=== PATIENT | male | born 1975 | race Caucasian/White ===

== ENCOUNTER 2023-10-05 08:58 | Outpatient (AMB) | payer OTHER, SELFPAY ==
--- NOTE | 2023-10-05 08:59 | MHC.OFFVIS ---
Vital Signs 10/05/23 09:04 Height 5 ft 7 in Weight 223 lb BMI 34.9 BP 142/86 H Blood Pressure Location Rt brachial Position Sitting Pulse 72 Intake Visit Reasons: Right inguinal hernia Intake Note: This patient presents for an assessment for right inguinal hernia. Patient c/o; Onset 3-5 years, reports right groin, reports pain and burning sensation. Software Application Tester Required: No Accompanied by: Self / Same As Patient Allergies No Known Allergies [No Known Allergies*] Allergy (Unverified 10/05/23 09:04) amoxicillin Allergy (Unknown, Uncoded 10/05/23 09:04) rash Medication List - Last Reconciled 10/05/23 by Mario Jensen MD No Known Home Meds HPI HPI Right inguinal hernia: Details: 48-year-old male referred for an inguinal hernia on the right side. He has been noticing this reducible mass for several years. This has been causing him some tenderness once a while. However, for the past few months he says that his symptoms have been worsening. He says that the pain has been more frequent. Furthermore the hernia comes out more often. He says that once in a while he has to push this back in. 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 He admits to being a smoker. He smokes a pack a day. [facility] Medical History Right inguinal hernia Smoker Surgical History (Updated 10/05/23 @ 09:05 by HUMBERTO Mercedes) No pertinent past surgical history Family History (Updated 10/05/23 @ 09:07 by HUMBERTO Mercedes) Maternal Aunt Breast cancer Social History Alcohol intake: never Patient Tobacco Use Status: Current everyday Tobacco user Review of Systems Const Denies chills and Denies fever(s) Card Denies chest pain, Denies dyspnea and Denies dyspnea on exertion Resp Denies cough, Denies dyspnea and Denies dyspnea on exertion GI Denies hematochezia and Denies change in bowel habits Denies hematuria and Denies difficulty urinating Musc Denies back pain and Denies limited range of motion Neuro Denies focal weakness and Denies convulsions Psych Denies depression and Denies mood swings Physical Exam Vital Signs: Last Vital Signs Pulse 72 10/05/23 09:04 BP 142/86 H 10/05/23 09:04 BMI result Body Mass Index 34.9 Const General: comfortable and no acute distress Orientation/consciousness: patient oriented x3 Neck Neck: Yes no lymphadenopathy Resp Auscultation: clear to auscultation bilaterally Cardio Rhythm: regular rhythm GI Palpation (GI): Soft to palpation, nontender and no guarding Neuro General: patient oriented x3 Assessment & Plan Assessment & Plan (1) Right inguinal hernia: Code(s): K40.90 - Unilateral inguinal hernia, without obstruction or gangrene, not specified as recurrent Category: Medical Plan He has a reducible right inguinal hernia. This has been bothering him more over the years. I explained him the technique of repair of the right inguinal hernia with mesh. I reviewed the risks including but not limited to bleeding, infections, injury to bowel, vas deferens or the testicle, recurrence, postop pain, as well as the benefits and alternatives. I explained to him what to expect postoperatively. He understands and says he wants to proceed because of his symptoms. Coding Level of Care Code New Pt Level 3 (39420) Diagnoses Right inguinal hernia K40.90
[2023-10-05 09:04] VITALS: BP 142/86; PULSE 72; BMI 34.9
== END 2023-10-05 09:19 | disposition home or self-care (01) ==
PROVIDERS: PCP Hospitalist; Visit Provider Surgery
DX: K40.90 Unilateral inguinal hernia, without obstruction or gangrene, not specified as recurrent (principal)
CPT/HCPCS: 99203

== ENCOUNTER → 2023-10-05 08:58 | Outpatient (BNVA) | payer OTHER, SELFPAY | PROVIDERS: PCP Hospitalist; Visit Provider Surgery ==

== ENCOUNTER 2023-10-24 09:51 | Day surgery (SDC) | payer OTHER, SELFPAY ==
[2023-10-20 14:17] VITALS: BMI 34.9
--- NOTE | 2023-10-23 11:04 | HO.ANESPROP2 ---
HPI - Anesthesia Eval Consult details Narrative: 48yo M for Right Hernia Inguinal Reducible with mesh PMFSH Active Problems Active Problems: All Active Problems Right inguinal hernia (Acute) Smoker (Acute) Past Medical History Medical History H/O ETOH abuse Right inguinal hernia Smoker Family History Family History Maternal Aunt Breast cancer Surgical History Surgical History No pertinent past surgical history Social History Social History Alcohol intake: never Patient Tobacco Use Status: Current everyday Tobacco user Tobacco use type: Cigarette Cigarettes Per Day: 10 Years Smoked: 10 Smoked in Last 30 Days: Yes Use of substances other than those prescribed or required for medical reasons: No Are you DNR?: No Advance Directives: No Advance Directives Information Provided: Yes Meds Allergies Allergy/AdvReac Type Severity Reaction Status Date / Time amoxicillin Allergy Intermediate Rash Verified 10/24/23 12:16 diphenhydramine Allergy Intermediate Tingling Verified 10/24/23 15:03 [From Benadryl] Exam Height,Weight and Vital Signs: Height 5 ft 7 in Weight 101.151 kg Assessment and Plan Assessment Anesthesia Assessment: Chart Reviewed
[2023-10-24] VITALS (15 sets, daily range): BP systolic 106–126; BP diastolic 65–81; PULSE 55–68; RESP 16–20; TEMP 36.1–36.9; O2SAT 95–100; BMI 34.6
[2023-10-24] MEDS: Lactated Ringers 1,000 ML 100 ML IVCONT (13:40)
--- NOTE | 2023-10-24 13:59 | HO.ANESPROP2 ---
[facility] Active Problems Active Problems: All Active Problems Right inguinal hernia (Acute) Smoker (Acute) Past Medical History Medical History H/O ETOH abuse Right inguinal hernia Smoker Functional capacity: independent ambulation Family History Family History Maternal Aunt Breast cancer Family history of problems with anesthesia: No Surgical History Surgical History No pertinent past surgical history History of Problems with Anesthesia: No Social History Social History Alcohol intake: never Patient Tobacco Use Status: Current everyday Tobacco user Tobacco use type: Cigarette Cigarettes Per Day: 10 Years Smoked: 10 Smoked in Last 30 Days: Yes Use of substances other than those prescribed or required for medical reasons: No Are you DNR?: No Advance Directives: No Advance Directives Information Provided: Yes Meds Allergies Allergy/AdvReac Type Severity Reaction Status Date / Time amoxicillin Allergy Intermediate Rash Verified 10/24/23 12:16 Active Medications: Current Medications Albuterol Sulfate (Albuterol Sulfate (0.083%) 2.5 Mg/3 Ml Vial.Neb) 2.5 mg INHALE ONCE PRN PRN Reason: Shortness of Breath/Wheezing Lactated Ringer's (Lr) 1,000 mls @ 100 mls/hr IVCONT .Q10H PRASHANTH Last Admin: 10/24/23 13:40 Dose: 100 mls/hr Home Medications ?Medication ?Instructions ?Recorded ?Confirmed ?Last Taken ?Type No Known Home Meds 10/05/23 10/24/23 Unknown History Exam Height,Weight and Vital Signs: Height 5 ft 7 in Weight 100.244 kg Last Vital Signs Temp 97.0 F 10/24/23 12:19 Pulse 64 10/24/23 12:19 Resp 16 10/24/23 12:19 BP 126/78 10/24/23 12:19 Pulse Ox 96 10/24/23 12:19 O2 Del Method Room Air 10/24/23 12:19 Airway Mallampati Class: III TM Dist: >3cm Neck ROM: Full Heart: RRR Lungs: CTA Assessment and Plan Assessment Anesthesia Assessment: Anesthesia Plan Discussed and Smoking Cess. Discussed Final Anesthetic Review Family History of Problems with Anesthesia: No History of Problems with Anesthesia: No ASA Class: III Final Preanesthetic Review: Meds/Allgs Chart Reviewed, Consent Obtained/Reviewed and Anes Risks/Benef Reviewed Patient Risk: Intermediate Procedure Risk: Low Anesthetic Plan Anesthetic Plan: GA Disposition: Standard PACU
--- NOTE | 2023-10-24 14:09 | MHC.SHP ---
Pre-Procedural Eval Section A - 24 Hr Update-Section A only Date of Service: 10/24/23 The patient is an INPATIENT: No Changes since office visit: No Cold of Flu in the past 2 weeks, No New Medical Problems, No Changes in Medication and No Patient answered all questions The patient has been examined within 24 hours of the surgical procedure. The History & Physical has been completed within 30 days and I have reviewed it.: Yes Section B - Complete if H&P > 30 days Chief Complaint: Unilateral inguinal hernia, without obstruction Allergies: Allergies Allergy/AdvReac Type Severity Reaction Status Date / Time amoxicillin Allergy Intermediate Rash Verified 10/24/23 12:16 Plan I have reviewed the history and physical and performed a pertinent physical examination on my patient. No changes have occurred unless specified. Time Spent With Patient Time: Total time managing care of this patient today ____ minutes.
--- NOTE | 2023-10-24 16:22 | W.PM.OPN ---
Operative Note Operative Note Date of Service: 10/24/23 Narrative: Preop diagnosis: Right inguinal hernia, partially reducible Postop diagnosis: Right inguinal hernia, with chronically incarcerated omental fat, indirect Procedure: Repair of a right inguinal hernia with mesh Surgeon: Mario Jensen MD Customer Engagement Representative: MAIK Funez student The patient is a 48-year-old male with a partially reducible right inguinal hernia with symptoms. He wanted proceed with repair. He understood the technique of repair with mesh. He was aware of the risks, benefits, and alternatives He was brought to the operating room. He was placed supine under general anesthesia via laryngeal mask airway. The right groin area was prepped and draped in the usual sterile fashion. A surgical time-out was done. The patient received cefazolin 2 g IV preoperatively I infiltrated the planned line of incision with lidocaine 1%. I made a short incision using a blade 15. Along an imaginary line from the anterior superior iliac spine to the pubic ramus. I deepened the incision with electrocautery through the full-thickness of the skin and thick subcutaneous fat until I was able to visualize the external oblique aponeurosis. I bluntly dissected the aponeurosis to expose the external ring. I made an incision on the aponeurosis with a blade 15 and extended this inferomedially to connect with the external ring. The inguinal canal was therefore entered. I applied hemostats on the edges of the divided aponeurosis of the external oblique. I bluntly dissected the underside of the aponeurosis to create a pocket for the mesh I then visualize the spermatic cord and its contents and there was a lot of omental fat stuck onto the cord. I bluntly dissected the coordinates contents with my finger until was able to pass a [place] drain around this. This [place] drain was used for retraction. I identified the vas deferens and the accompanying vessels. I protected these during the dissection and carefully the large hernia off of the cord contents. Part of the hernia was also stuck to the testicle so I had to divide this adhesions until was able to separate the entire contents off of the testicle as well. I was able to push the testicle back into the scrotum. I reduced the hernia contents. This was a large indirect hernia through the internal ring. I reinforced the internal ring with a plug. The Prolene plug was secured with Prolene 2 sutures to shelving edge of the inguinal laterally and the internal oblique superiorly and medially. I then reinforced the entire floor of the canal with a keyhole mesh. The tails of the mesh were passed around the cord at the level of the internal ring and secured together with Prolene 2 sutures. I secured the mesh to the shelving edge of the inguinal meant laterally, the pubic ramus inferomedially as well as the internal oblique superiorly and medially. I removed the Kam drain I irrigated. I observed for hemostasis. Once hemostasis was confirmed, I proceeded to then close the internal oblique aponeurosis with a running Polysorb 2-0 stitch to re-create the external ring The subcutaneous layer was reapposed with Polysorb 3-0 interrupted sutures. Skin closure was achieved on all incisions using Polysorb 4-0 subcuticular running stitch The area was infiltrated with Marcaine 0.5% for postop analgesia. Dressings were applied. The procedure was completed The patient tolerated the procedure well. There were no immediate complications. Initial and final counts of sponges and instruments were correct. Estimated blood loss was about 20 cc The patient was extubated without difficulty and transferred to the recovery room with stable vital signs.
[2023-10-24] MEDS: fentaNYL citrate/PF 100 MCG/2 ML VIAL 25 MCG IVPUSH ×4 (16:34→16:54)
[2023-10-24] MEDS: oxyCODONE HCl Immed Release 5 MG TABLET 10 MG PO (17:07)
== END 2023-10-24 18:00 | disposition home or self-care (01) ==
PROVIDERS: PCP Hospitalist; Visit Provider Surgery
PROC: (CPT 49507; principal; 2023-10-24 13:40)
DX: K40.90 Unilateral inguinal hernia, without obstruction or gangrene, not specified as recurrent (principal); F17.210 Nicotine dependence, cigarettes, uncomplicated
CPT/HCPCS: 49507; C1781; J0131; J0665; J0690; J1100; J2250; J2405; J2704; J3010

== ENCOUNTER → 2023-10-24 09:51 | Outpatient (BNV) | payer OTHER, SELFPAY | PROVIDERS: PCP Hospitalist; Visit Provider Surgery | DX: K40.90 Unilateral inguinal hernia, without obstruction or gangrene, not specified as recurrent (principal) | CPT/HCPCS: 49507 ==

== ENCOUNTER 2023-11-06 14:17 | Outpatient (AMB) | payer OTHER, SELFPAY ==
--- NOTE | 2023-11-06 14:19 | A.OFFVIS_ITS ---
Intake Visit Reasons: s/p right inguinal hernia repair with mesh Intake Note: This patient presents for a post-op assessment status post right inguinal hernia repair with mesh. Pt c/o; reports no complaints pertaining to surgery at this time. Bonsai Tender Required: No Accompanied by: Self / Same As Patient Allergies amoxicillin Allergy (Intermediate, Verified 11/06/23 14:26) Rash diphenhydramine [From Benadryl] Allergy (Intermediate, Verified 11/06/23 14:26) Tingling HPI HPI s/p right inguinal hernia repair with mesh: Details: He underwent repair of a right inguinal hernia with mesh last 10/24/2023. He tolerated the procedure well. He currently denies significant complaints and says he feels well overall. [facility] Medical History H/O ETOH abuse Right inguinal hernia Smoker Surgical History History of right inguinal hernia repair Family History Maternal Aunt Breast cancer Social History Alcohol intake: never Patient Tobacco Use Status: Current everyday Tobacco user Tobacco use type: Cigarette Cigarettes Per Day: 10 Years Smoked: 10 Review of Systems Const Denies chills and Denies fever(s) Card Denies chest pain, Denies dyspnea and Denies dyspnea on exertion Resp Denies cough, Denies dyspnea and Denies dyspnea on exertion GI Denies hematochezia and Denies change in bowel habits Denies hematuria and Denies difficulty urinating Musc Denies back pain and Denies limited range of motion Neuro Denies focal weakness and Denies convulsions Psych Denies depression and Denies mood swings Physical Exam Const General: comfortable and no acute distress Resp Effort & Inspection: normal respiratory effort GI Other: Right inguinal hernia repair site is well healed, not infected, repair is intact Assessment & Plan Assessment & Plan (1) Right inguinal hernia: Code(s): K40.90 - Unilateral inguinal hernia, without obstruction or gangrene, not specified as recurrent Category: Medical Plan: Status post repair with mesh. He is doing very well. The repair site is intact and well healed I advised him to avoid lifting anything more than 20 lb for at least 2 more weeks. Can follow up on a p.r.n. basis. Coding Level of Care Code Global (46917) Diagnoses Right inguinal hernia K40.90
== END 2023-11-06 14:33 | disposition home or self-care (01) ==
LOC: HO.HGS 14:17
PROVIDERS: PCP Hospitalist; Visit Provider Surgery
DX: K40.90 Unilateral inguinal hernia, without obstruction or gangrene, not specified as recurrent (principal)
CPT/HCPCS: 99024

== ENCOUNTER → 2023-11-06 14:17 | Outpatient (BNVA) | payer OTHER, SELFPAY | PROVIDERS: PCP Hospitalist; Visit Provider Surgery ==

== ENCOUNTER 2024-05-18 10:40 | Emergency (ER) | payer OTHER, SELFPAY ==
--- NOTE | 2024-05-18 10:57 | ED_ITS ---
HPI - Alcohol General Chief Complaint: ETOH/Substance Use Stated Complaint: ETOH USE W/AMS,,HIGH BP 180/100 PER EMS Time Seen by Provider: 05/18/24 10:42 Source: patient and old records reviewed Mode of arrival: ambulatory Limitations: other (intoxication) History of Present Illness ED Provider: SHREE HPI narrative: 49 yo male with PMH of ETOH abuse he will not quantify how much other than a lot 911 was called today as patient was found by son lying down crying and then he started to report SI. He denies any ingestion or overdose. He has no medical complaints. He cries and states he has ETOH problem and is suicidal. He does not state why this is happening MD complaint: alcohol intoxication Last drink: Just prior to admission Chronic alcohol use: Yes Previous visits for alcohol intoxication: No Recent trauma: No Associated symptoms: suicidality Treatments prior to arrival: none Related Data Previous Rx's ?Medication ?Instructions ?Recorded ibuprofen 600 mg tablet 600 mg PO Q6H PRN pain #30 tabs 10/24/23 oxycodone-acetaminophen 5 mg-325 1 tab PO Q4-6H PRN pain #25 tabs 10/24/23 mg tablet (Percocet) Allergies Allergy/AdvReac Type Severity Reaction Status Date / Time amoxicillin Allergy Intermediate Rash Verified 05/18/24 11:07 diphenhydramine Allergy Intermediate Tingling Verified 05/18/24 11:07 [From Benadryl] Review of Systems 2 Review of Systems: ROS unable to be obtained due to intoxication PMFSH Past Medical History Attestation statement: The following information was validated with the patient. Source: old records reviewed Medical History H/O ETOH abuse Right inguinal hernia Smoker Surgical History History of right inguinal hernia repair Family History Family History Maternal Aunt Breast cancer Social History Social History (Updated 05/18/24 @ 10:59 by Lisa Amos DO) Alcohol intake: current Alcohol intake frequency: 3 or more drinks per day Alcohol type: beer Patient Tobacco Use Status: Current everyday Tobacco user Tobacco use type: Cigarette Cigarettes Per Day: 10 Years Smoked: 10 Smoked in Last 30 Days: Yes Use of substances other than those prescribed or required for medical reasons: No Advance Directives: No Do you have a plan to hurt others: No Plan Physical Exam ED Vital Signs: Vital Signs - 24 hr 05/18/24 10:59 05/18/24 11:09 05/18/24 13:29 Temperature 98.1 F Pulse Rate 77 77 79 Respiratory Rate 18 18 20 Blood Pressure 139/81 139/81 127/84 Pulse Oximetry 99 99 98 Oxygen Delivery Method Room Air Room Air Room Air BMI result Body Mass Index 33.4 Appearance: Alert. Oriented X3. ETOH odor, slurred speech, mild acute distress. Eyes: Pupils equal, round and reactive to light. injected sclera ENT: Pharynx normal. atraumatic Neck: Normal inspection. Neck supple. CVS: Normal heart rate and rhythm. Pulses normal. Respiratory: No respiratory distress. Breath sounds normal. Abdomen: Soft and non-tender. incision well healed Skin: Skin warm and dry. Normal skin color. Normal skin turgor. Extremities: No lower extremity edema. Neuro: Oriented X 3. No motor deficit. No sensory deficit. Course Course Course Narrative: I did ask to speak to a son about his father but he chose not to speak with me in regards to his care Medical Decision Making Medical Decision Making [facility] Narrative: 49 yo male with ETOH abuse here with c/o SI - he denies ingestions or overdoses will obtain labs and CARE team consult, place on CIWA and PRN ativan. No signs of head trauma Differential Diagnosis Differential Diagnoses: The differential diagnosis associated with the presentation includes ETOH abuse, SI Admission/Observation Consideration of admission/observation: Escalation of care including admission/observation considered physician observation started at 1128am pending CARE team CARE team and addiction involved aware of SI reports states he is denying this now at this time stable for DC 148pm sons are bringing him to [facility] [employer] [facility] detox Consult Healthcare Provider Management of the patient was discussed with: Behavioral Health Provider Lab Data [facility] Lab Attestation statement: I reviewed the patient's lab results. 05/18/24 10:55 05/18/24 10:55 Labs: Lab Results 05/18/24 Range/Units 10:55 WBC 12.1 H (4.8-10.8) X10*3/uL RBC 4.33 L (4.60-5.80) X10*6/uL Hgb 14.5 (14.0-18.0) g/dl Hct 40.5 L (42.0-52.0) % MCV 93.5 (80.0-98.0) fL MCH 33.5 H (27.0-33.0) pg MCHC 35.8 (31.0-36.0) g/dl RDW 13.9 (11.0-16.0) % Plt Count 280 (160-400) X10*3/uL MPV 7.7 L (9.4-12.4) fL Immature Gran % (Auto) 0.7 H (0.0-0.4) % Neut % (Auto) 74.8 H (45-73) % Lymph % (Auto) 17.5 L (20-40) % Pickett % (Auto) 5.6 (2-11) % Eos % (Auto) 0.7 (0-4) % Baso % (Auto) 0.7 (0-2) % Lymph # (Auto) 2.1 (1.2-4.9) X10*3/uL Pickett # (Auto) 0.7 (0.1-1.2) X10*3/uL Eos # (Auto) 0.1 (0.0-0.4) X10*3/uL Baso # (Auto) 0.1 (0.0-0.2) X10*3/uL Abs Immat Gran (auto) 0.09 H (0.00-0.03) X10*3/uL Absolute Neuts (auto) 9.0 H (2.0-8.3) x10*3/uL Absolute Nucleated RBC 0.000 (0.0-0.012) X10*3/uL Nucleated RBC % (auto) 0.0 (0.0-0.2) /100WBC Sodium 139 (135-145) mmol/L Potassium 3.6 (3.3-5.1) mmol/L Chloride 103 (96-108) mmol/L Carbon Dioxide 24 (22-29) mmol/L Anion Gap 16 (12-20) BUN 8 L (9-16) mg/dL Creatinine 0.98 (0.5-1.4) mg/dL Estim Creat Clear Calc 102.0 Estimated GFR > 60 Random Glucose 121 H (60-115) mg/dL Calcium 7.9 L (8.4-10.2) mg/dL Magnesium 2.2 (1.6-2.6) mg/dL Total Bilirubin 0.4 (0.0-1.0) mg/dL Direct Bilirubin 0.1 (0.0-0.5) mg/dL AST 31 (5-37) U/L ALT 36 (0-40) U/L Alkaline Phosphatase 81 (39-117) U/L Total Protein 6.8 (6.5-8.0) g/dL Albumin 4.0 (3.5-5.0) g/dL Urine Opiates Screen Not Detected (Not Detect) Ur Buprenorphine Scrn Not Detected (Not Detect) ng/mL Ur Oxycodone Screen Not Detected (Not Detect) ng/mL Urine Methadone Screen Not Detected (Not Detect) ng/mL Urine Fentanyl Screen Not Detected (Not Detect) Ur Barbiturates Screen Not Detected (Not Detect) Ur Phencyclidine Scrn Not Detected (Not Detect) Ur Amphetamines Screen Not Detected (Not Detect) U Benzodiazepines Scrn Not Detected (Not Detect) Urine Cocaine Screen Not Detected (Not Detect) U Marijuana (THC) Screen Not Detected (Not Detect) Ethyl Alcohol 307 H* mg/dL Independent Historian Clinical information obtained from an independent historian. History obtained from or confirmed by: EMS External Record Review External record reviewed: Outpatient record Medications Administered Generic Name Dose Route Start Last Admin Trade Name Freq PRN Reason Stop Dose Admin Lorazepam 2 mg 05/18/24 10:48 05/18/24 11:17 Lorazepam 1 Mg Tablet PO 2 mg Q3H PRN Administration Alcohol Withdrawal Discontinued Medications Generic Name Dose Route Start Last Admin Trade Name Freq PRN Reason Stop Dose Admin Ondansetron HCl 4 mg 05/18/24 10:48 05/18/24 11:17 Ondansetron Odt 4 Mg Tab.Rapdis TRANSLINGU 05/18/24 10:49 4 mg ONCE ONE Administration Discharge Plan Discharge Clinical Impression: Alcohol intoxication Qualifiers: Complication of substance-induced condition: with unspecified complication Q ualified Code(s): F10.929 - Alcohol use, unspecified with intoxication, unspecified Patient Disposition: Home, Self-Care Instructions: Abuse of Alcohol (ED) Additional Instructions: labs reassuring ETOH level 307 stable for inpatient rehab return for any worsening symptoms or concerns. Prescriptions: No Action oxycodone-acetaminophen [Percocet] 5-325 mg tablet 1 tab PO Q4-6H PRN (Reason: pain) Qty: 25 0RF Rx Instructions: Partial Fill upon patient request. ibuprofen 600 mg tablet 600 mg PO Q6H PRN (Reason: pain) Qty: 30 0RF Print Language: Peruvian
[2024-05-18 10:59] VITALS: BP 139/81; BP 180/100; PULSE 77; PULSE 92; RESP 18; O2SAT 99; BMI 33.4
[2024-05-18 11:02] LABS: Basophils Absolute Auto 0.1 X10*3/uL (0.0-0.2); Basophils Percent Auto 0.7 % (0-2); Eosinophils Absolute Auto 0.1 X10*3/uL (0.0-0.4); Eosinophils Percent Auto 0.7 % (0-4); Hematocrit 40.5 % (42.0-52.0); Hemoglobin 14.5 g/dl (14.0-18.0); Imm Gran Abs Auto 0.09 X10*3/uL (0.00-0.03); Imm Gran Pct Auto 0.7 % (0.0-0.4); Lymphocytes Absolute Auto 2.1 X10*3/uL (1.2-4.9); Lymphocytes Percent Auto 17.5 % (20-40); MANUAL DIFF FLAG NO; Mean Corpuscular HGB Conc 35.8 g/dl (31.0-36.0); Mean Corpuscular Hemoglobin 33.5 pg (27.0-33.0); Mean Corpuscular Volume 93.5 fL (80.0-98.0); Mean Platelet Volume 7.7 fL (9.4-12.4); Monocytes Absolute Auto 0.7 X10*3/uL (0.1-1.2); Monocytes Percent Auto 5.6 % (2-11); Neutrophils Percent Auto 74.8 % (45-73); Platelet Count 280 X10*3/uL (160-400); Red Blood Count 4.33 X10*6/uL (4.60-5.80); Red Cell Distribution Width 13.9 % (11.0-16.0); White Blood Count 12.1 X10*3/uL (4.8-10.8)
[2024-05-18 11:09] VITALS: BP 139/81; PULSE 77; RESP 18; O2SAT 99
[2024-05-18] MEDS: LORazepam 1 MG TABLET 2 MG PO (11:17)
[2024-05-18] MEDS: Ondansetron ODT 4 MG TAB.RAPDIS TRANSLINGU (11:17)
[2024-05-18 11:19] LABS: Amphetamine Screen Urine Not Detected (Not Detect); Barbiturates, Urine Not Detected (Not Detect); Benzodiazepines Screen Urine Not Detected (Not Detect); Buprenorphine Scr Not Detected (Not Detect); Cannabinoid Screen Urine Not Detected (Not Detect); Cocaine Screen Urine Not Detected (Not Detect); Fentanyl, urine Not Detected (Not Detect); Methadone Screen, Urine Not Detected (Not Detect); Opiate Screen Urine Not Detected (Not Detect); Oxycodone Screen Urine Not Detected (Not Detect); Phencyclidine Screen Urine Not Detected (Not Detect)
--- NOTE | 2024-05-18 11:22 | PC.NURSE ---
Pt comes from home via EMS. Per EMS, Pt was found at home to have consumed a 6 pack of beer. EMS staff reports Pt endorses SI while in transport. Pt is agitated and restless; additionally Pt reports feeling suicidal and frequently apologizes. VSS CIWA = 12. Pt medicated per AUG. Pt now demanding to leave hospital and wishes to speak to his son.
[2024-05-18 11:23] LABS: Alanine Aminotransferase 36 U/L (0-40); Alkaline Phosphatase 81 U/L (39-117); Anion Gap 16 (12-20); Aspartate Amino Transferase 31 U/L (5-37); Bilirubin Direct 0.1 mg/dL (0.0-0.5); Bilirubin Total 0.4 mg/dL (0.0-1.0); Blood Urea Nitrogen 8 mg/dL (9-16); Calcium 7.9 mg/dL (8.4-10.2); Carbon Dioxide 24 mmol/L (22-29); Chloride 103 mmol/L (96-108); Estimated Glomerular Filt Rate > 60; Ethanol 307 mg/dL; Glucose Random 121 mg/dL (60-115); Magnesium 2.2 mg/dL (1.6-2.6); Potassium 3.6 mmol/L (3.3-5.1); Sodium 139 mmol/L (135-145); Total Protein 6.8 g/dL (6.5-8.0)
--- NOTE | 2024-05-18 13:00 | PC.NURSE ---
Pt rests quietly for a short time. Family currently at bedside. Registration in to see Pt; Registration reports that Pt is requesting to leave at this time. Pt already made aware that he is not eligible for d/c at this time given statements of SI. Care Team eval pending.
--- NOTE | 2024-05-18 13:26 | PC.NURSE ---
Call received from Coco (english professor) at [facility] @ [phone] reporting Pts son has reached out requesting placement for detox. Coco reports that at this time there is a bed available for Pt when he is medically cleared. Coco informed that Pt is still in need of evaluation/clearance from multiple disciplines. Coco advised that [facility] Care Team and Recovery Team will be informed of this information and can coordinate when Pt is eligible for d/c.
[2024-05-18 13:29] VITALS: BP 127/84; PULSE 79; RESP 20; TEMP 36.7; O2SAT 98
[2024-05-18 14:05] VITALS: BP 127/84; PULSE 79; RESP 20; TEMP 36.7; O2SAT 98
== END 2024-05-18 14:06 | disposition home or self-care (01) ==
PROVIDERS: Emergency Provider Emergency Medicine
DX: F10.120 Alcohol abuse with intoxication, uncomplicated (principal); Y90.8 Blood alcohol level of 240 mg/100 ml or more; R45.851 Suicidal ideations; F17.210 Nicotine dependence, cigarettes, uncomplicated
CPT/HCPCS: 36415; 80048; 80076; 80307; 83735; 85025; 99285; S9485